=== PATIENT | female | born 1990 | race Hispanic/Latino ===

== ENCOUNTER 2025-04-02 07:07 | Day surgery (SDC) | payer OTHER ==
[~2025-04-02] VITALS: Ht 162.6 cm; Wt 76.2 kg
[2025-04-02] VITALS (11 sets, daily range): BP systolic 132–145; BP diastolic 65–87; PULSE 56–67; RESP 15–18; TEMP 97–98
[2025-04-02] MEDS: 0.9%NACL 1000ML 1,000 ML IV ONE (08:35)
== END 2025-04-02 12:17 | disposition home or self-care (01) ==
LOC: DAH 07:07 → ENDO 07:07
PROVIDERS: ATTEND Internal Medicine Gastroenterology
DX: R10.13 Epigastric pain (principal); K29.50 Unspecified chronic gastritis without bleeding; K76.0 Fatty (change of) liver, not elsewhere classified; E66.9 Obesity, unspecified; Z68.30 Body mass index [BMI] 30.0-30.9, adult
CPT/HCPCS: 43239; 84703; 36415; 43242; J7030; J2704 ×2; A4620; A4215; 43238; J3490